=== PATIENT | male | born 1980 | race Two or more races ===

== ENCOUNTER 2018-03-11 21:46 | Emergency (ER) | payer SELFPAY ==
[~2018-03-11] VITALS: Ht 175.3 cm; Wt 79.4 kg
[2018-03-11] MEDS ORDERED: LIDOCAINE 1% HCL (LOCAL ANESTH.) INJ 20ML MDV ONE (22:11)
[2018-03-11] MEDS ORDERED: ACETAMINOPHEN 500 MG TAB PO ONE ×2 (22:12→22:15)
[2018-03-11] MEDS ORDERED: cefTRIAXone 1GM/10ml IVPUSH 10 ML IV ONE ×2 (22:13→22:15)
[2018-03-11] MEDS ORDERED: LIDOCAINE 1% (LOCAL ANESTH.) PF 5ml SDV IJ ONE (22:15)
[2018-03-11] MEDS ORDERED: SODIUM CHLORIDE 0.9% 1,000 ML IV ONE (22:15)
[2018-03-11] MEDS ORDERED: TETANUS-DIPTH-ACEL PERTUSSIS 0.5ML SYRG IM ONE (22:45)
[2018-03-11] MEDS ORDERED: CLINDAMYCIN 600MG IV 50 ML IV ONE (23:45)
[2018-03-11] MEDS ORDERED: NEOMYCIN-BACITRACIN-POLYM UNITDOSE PKG TOP OINT TOP ONE (23:45)
[2018-03-12 02:13] VITALS: BP 146/79
[2018-03-12] MEDS ORDERED: NEOMYCIN-BACITRACIN-POLYM 15GM TOP OINT TOP SCH (10:00)
== END 2018-03-12 00:44 | disposition home or self-care (01) ==
LOC: ER 21:46
DX: S51.811A Laceration without foreign body of right forearm, initial encounter (principal); F12.10 Cannabis abuse, uncomplicated; W54.0XXA Bitten by dog, initial encounter; Y93.89 Activity, other specified; Y99.8 Other external cause status; Y92.89 Other specified places as the place of occurrence of the external cause
CPT/HCPCS: 12004; 94761; 96365; 96366; 96375; 99285; J2001; J3490; 90715